=== PATIENT | female | born 1985 | race Caucasian/White ===

== ENCOUNTER 2024-07-21 14:16 | Emergency (ER) | payer SELFPAY ==
[2024-07-21 14:19] VITALS: BP 124/86
[2024-07-21 14:57] LABS: % Basophils 0.6 % (0-2); % Eosinophils 0.8 % (0-6); % Immature Granulocytes 0.4 % (0-0.5); % Lymphocytes 40.3 % (20.5-51.1); % Monocytes 2.6 % (1.7-9.3); % Neutrophils 55.3 % (42.2-75.2); Absolute Basophils 0.1 10^3/uL (0-0.2); Absolute Eosinophils 0.1 10^3/uL (0-0.7); Absolute Lymphocytes 3.2 10^3/uL (1.2-3.4); Absolute Monocytes 0.2 10^3/uL (0.1-0.6); Absolute Neutrophils 4.3 10^3/uL (1.4-6.5); Hematocrit 44.4 % (37.0-47.0); Hemoglobin 15.4 g/dL (12.0-16.0); Mean Corp Hgb Conc. 34.7 g/dL (33.0-37.0); Mean Corpuscular Hgb 27.5 pg (27.0-31.0); Mean Corpuscular Volume 79.3 fL (81.0-99.0); Mean Platelet Volume 10.1 fL (7.4-10.4); Nucleated Red Blood Cells % 0 %; Platelet Count 303 10^3/uL (130-400); Red Cell Dist. Width 13.2 % (11.5-14.5); White Blood Cell Count 7.8 10^3/uL (4.8-10.8)
[2024-07-21 15:13] LABS: Amphetamines Negative (Negative); Barbiturates Negative (Negative); Benzodiazepines Negative (Negative); Buprenorphine Negative (Negative); Cocaine Negative (Negative); Marijuana Negative (Negative); Methadone Negative (Negative); Methamphetamines Negative (Negative); Opiates Positive (Negative); Phencyclidine Negative (Negative); Tricyclic Antidepressants Negative (Negative)
[2024-07-21 15:15] LABS: HCG, Serum Qualitative Screen Negative
[2024-07-21 15:21] LABS: Blood Urea Nitrogen 18 mg/dl (7-17); Calcium 9.4 mg/dl (8.4-10.2); Carbon Dioxide 22 mmol/L (22-30); Chloride 101 mmol/L (98-107); Glucose 349 mg/dl (70-99); Potassium 4.5 mmol/L (3.5-5.1); Sodium 133 mmol/L (135-145); eGFR > 60.00
[2024-07-21 15:27] LABS: Alcohol None Detected
[2024-07-21 15:38] LABS: Fentanyl, Urine Positive (Negative)
--- NOTE | 2024-07-21 15:40 | ED.GENMED ---
History of Present Illness
General
Chief Complaint: Substance Abuse
Source: patient
Time Seen by Provider: 07/21/24 15:35
History of Present Illness
History of Present Illness:
39-year-old female presenting to the emergency department for evaluation of possible substance abuse. Patient was reportedly brought by manager social responsibility and personal service representative from her place of employment for the screening. Patient denies any
substance use. She has no other concerns at this time.
Past History
Past History
ED Past Medical History: None
ED Past Surgical History: Cholecystectomy
Social History
Tobacco: Smoker
Alcohol: None
Drug: None (Patient denies)
Personal:
Living: with family
Review of Systems
Review of Systems
All Other Systems: ROS reviewed and negative except as documented in HPI and ROS
Phy Exam
Physical Exam
Physical Exam:
GENERAL: Alert , in no apparent distress
EYE: conjunctiva clear
Head: Normocephalic atraumatic
NECK: Supple,
ENT: mmm.
LUNGS: no acute respiratory distress
NEUROLOGICAL: Alert and oriented
SKIN: Warm and dry, skin intact.
MUSCULOSKELETAL: well perfused.
PSYCH: Normal and appropriate interaction.
Scores
Heart Failure Risk
Heart Failure Risk Score: Not Applicable
Heart Score for Chest Pain Patients
STEMI patient?: Not applicable
Withdrawal Assessment of Alcohol
Withdrawal Assessment Completed?: Not applicable
Course
Orders/Labs/Results
Orders:
Orders
07/21/24 14:29
Test Result ONCE
07/21/24 14:42
Alcohol Urgent
Basic Metabolic Panel Urgent
Complete Blood Count/With Diff Urgent
Fentanyl, Urine Urgent
HCG, Serum Qualitative Screen Urgent
Comment: Notify provider if positive test present
Urine Drug Abuse Screen Urgent
Date Specimen was Collected: 07/21/24
Time Specimen was Collected: 14:29
Abnormal Lab Results
07/21/24
14:42
RBC 5.60 H 10^6/uL
(4.20-5.40)
MCV 79.3 L fL
(81.0-99.0)
Sodium 133 L mmol/L
(135-145)
BUN 18 H mg/dl
(7-17)
Glucose 349 H mg/dl
(70-99)
Urine Opiates Screen Positive H
(Negative)
Urine Fentanyl Screen Positive H
(Negative)
07/21/24 14:42
07/21/24 14:42
Vital Signs
Initial and Last Documented VS:
Initial Vital Signs
Temp Pulse Resp BP Pulse Ox
98.3 F 72 22 124/86 99
07/21/24 14:19 07/21/24 14:19 07/21/24 14:19 07/21/24 14:19 07/21/24 14:19
Last Documented Vital Signs
Temp Pulse Resp BP Pulse Ox
98.3 F 72 22 124/86 99
07/21/24 14:19 07/21/24 14:19 07/21/24 14:19 07/21/24 14:19 07/21/24 14:19
MDM/Problems Addressed
MDM/Problems Addressed:
39-year-old female presenting to the emergency department for evaluation for possible substance use. Patient denies. UDS and labs sent on arrival. Patient ultimately tested positive for fentanyl/opiates. She was informed of this finding. No
indication for further emergency department care. Stable for discharge home. Aware of return precautions.
*Pulse Oximetry
Patient hypoxic: no
*Critical Care Note
Total Time (30-74mins, 75-104mins- exclusive of procedures): Not Applicable
ED Attending Note
-
Portions of this chart may have been created with voice recognition software.� Occasional wrong word or��sound alike� substitutions may have occurred due to the inherent limitations of voice recognition software.
Discharge Plan
Departure
Patient Disposition: Home (Routine Discharge)
Date of Disposition: 07/21/24
Time of Disposition: 15:40
Patient with high blood pressure during this ER visit?: No
Discharge Problem:
Screening for substance abuse
Prescriptions:
No Action
ibuprofen 200 MG tablet
400 - 600 mg PO QIDPRN PRN (Reason: pain) Qty: 1 0RF
oxycodone-acetaminophen 5 MG/325 MG tablet
1 tab PO Q4HPRN PRN (Reason: pain not relieved by ibuprofen) Qty: 15 0RF
Interventions
Interventions:
*Risk Screen - Suicide Last Done: 07/21/24 14:19
*General Assessment Last Done: 07/21/24 14:19
*Neglect/Abuse Screening Last Done: 07/21/24 14:19
*ED- Fall Risk Assessment Last Done: 07/21/24 15:03
*ED COVID-19 Vaccine History Last Done: 07/21/24 15:03
ED-Psychological Assessment Last Done: 07/21/24 15:03
Discharge Date and Time
Print Language: THAI
== END 2024-07-21 16:21 | disposition home or self-care (01) ==
LOC: EMR 14:16
PROVIDERS: Emergency Medicine; EMERGENCY PHYSICIAN Emergency Medicine; FAMILY PHYSICIAN Family Medicine
DX: Z02.89 Encounter for other administrative examinations (principal); F17.200 Nicotine dependence, unspecified, uncomplicated; Z90.49 Acquired absence of other specified parts of digestive tract
CPT/HCPCS: 99283; 80048; 80306; 80307; 82077; 84703; 85025